=== PATIENT | female | born 1995 | race Hispanic/Latino ===

== ENCOUNTER → 2025-01-12 | Outpatient (CLI) | payer OTHER | LOC: M RAD 11:31 | PROVIDERS: ATTEND Nurse Practitioner Family | DX: O35.EXX0 Maternal care for other (suspected) fetal abnormality and damage, fetal genitourinary anomalies, not applicable or unspecified (principal) ==

== ENCOUNTER → 2025-01-21 | Outpatient (REF) | payer OTHER | LOC: M SFHCWAGY 13:29 | PROVIDERS: ATTEND Nurse Practitioner Family | DX: Z34.93 Encounter for supervision of normal pregnancy, unspecified, third trimester (principal); Z3A.36 36 weeks gestation of pregnancy ==

== ENCOUNTER 2025-01-27 10:28 | Inpatient (IN) | payer OTHER ==
[2025-01-27] VITALS (11 sets, daily range): BP systolic 99–118; BP diastolic 56–72; TEMP 97.4; O2SAT 97–99
[~2025-01-27] VITALS: Ht 154.9 cm; Wt 80.9 kg
[2025-01-27] MEDS ORDERED: PRENTAB9 PO (10:43)
[2025-01-27] MEDS ORDERED: TUMS500C PO (11:02)
[2025-01-27 12:11] LABS: PLATELET COUNT, AUTOMATED 340 10^3/uL (150-450)
[2025-01-27] MEDS ORDERED: HOME MED LIST COMPLETE! XX SCH (12:25)
[2025-01-27] MEDS ORDERED: TRANEXAMIC ACID INJection 1,000 MG in NS 100 ML IV PRN (12:50)
[2025-01-27] MEDS ORDERED: OXYTOCIN DRIP 30 UNITS in IV 1 EA IV PRN (12:50)
[2025-01-27] MEDS ORDERED: CARBOPROST TROMETHAMINE 250 MCG/ML AMP IM PRN (12:50)
[2025-01-27] MEDS ORDERED: OXYTOCIN INJ 10UNITS/ML 1ML VIAL IM PRN (12:50)
[2025-01-27] MEDS ORDERED: METHYLERGONOVINE MALEATE 0.2 MG/ML 1 ML VIAL IM PRN (12:50)
[2025-01-27] MEDS: LR 1,000 ML IV SCH (14:16)
[2025-01-27 15:26] LABS: HIV 1&2 SCREEN NEGATIVE (NEGATIVE)
[2025-01-27 15:34] LABS: HEPATITIS C VIRUS ABY INDEX < 0.02 INDEX (<0.8)
[2025-01-27] MEDS: LACTATED RINGER'S 1000 ML IV STA (18:15)
[2025-01-27] MEDS ORDERED: OXYTOCIN 30UNITS IN 0.9% NaCl 500ML IV BAG As Ordered ONE (19:18)
[2025-01-27] MEDS ORDERED: MORPHINE PRES-FREE INJ 10 MG/10 ML VIAL As Ordered ONE (19:18)
[2025-01-27] MEDS ORDERED: dexAMETHasone 4 MG/ML 1 ML VIAL As Ordered ONE (19:19)
[2025-01-27] MEDS ORDERED: ONDANSETRON 4MG 2ML VIAL As Ordered ONE (19:19)
[2025-01-27] MEDS: ceFAZolin SODIUM 2 GM in DEXTROSE 5% (D5W) ADV/MINI-BAG 50 ML IV ONE (19:27)
[2025-01-27] MEDS: BICITRA 30 ML SOLN UDC PO ONE (19:28)
[2025-01-27] MEDS: ACETAMINOPHEN 650 MG SUPP PR ONE (19:28)
[2025-01-27] MEDS ORDERED: ACETAMINOPHEN 1000MG/100ML IV BAG As Ordered ONE (19:42)
[2025-01-27] MEDS ORDERED: PHENYLephrine 500MCG 5ML (100MCG/ML) SYRINGE As Ordered ONE (20:02)
[2025-01-27] MEDS ORDERED: OXYTOCIN INJ 10UNITS/ML 1ML VIAL As Ordered ONE (20:05)
[2025-01-27] MEDS ORDERED: KETOROLAC 30 MG/ML 1 ML VIAL As Ordered ONE (20:30)
[2025-01-27 20:40] LABS: CORD GAS ABE V -4.1; CORD GAS HCO3 V 20.4 MMOL/L; CORD GAS O2 SAT V 62.7 %; CORD GAS PCO2 V 36.1 mmHg; CORD GAS PH V 7.37 UNITS; CORD GAS PO2 V 27.3 mmHg; CORD GAS SBC V 20.2 MMOL/L; CORD GAS TCO2 V 21.5 MMOL/L
[2025-01-27 20:43] LABS: CORD GAS ABE A -2.1; CORD GAS HCO3 A 25.5 MMOL/L; CORD GAS O2 SAT A 20.1 %; CORD GAS PCO2 A 54.9 mmHg; CORD GAS PH A 7.285 UNITS; CORD GAS PO2 A 13.3 mmHg; CORD GAS SBC A 20.8 MMOL/L; CORD GAS TCO2 A 27.2 MMOL/L
[2025-01-27] MEDS: OXYTOCIN DRIP 30 UNITS in IV 1 EA IV PRN (21:00)
[2025-01-27] MEDS ORDERED: ONDANSETRON 4MG 2ML VIAL IV PRN (21:10)
[2025-01-27] MEDS ORDERED: **NOTE PATIENT COMMENT** MISC XX SCH (21:10)
[2025-01-27] MEDS ORDERED: NALOXONE INJ 0.4 MG/1 ML VIAL IV PRN ×2 (21:10)
[2025-01-27] MEDS ORDERED: diphenhydrAMINE 50 MG/ML VIAL IV PRN (21:10)
[2025-01-27] MEDS: SLF 3 ML SYR IV SCH (23:29)
[2025-01-28] VITALS (8 sets, daily range): BP systolic 97–118; BP diastolic 54–61; O2SAT 97–100
[2025-01-28] MEDS ORDERED: SIMETHICONE 80MG CHEW TAB PO PRN (09:20)
[2025-01-28] MEDS ORDERED: PERCOCET 5MG/325MG TAB PO PRN (09:20)
[2025-01-28] MEDS ORDERED: RHOGAM 300MCG (1500IU) INJ IM SCH (09:20)
[2025-01-28] MEDS: LR 1,000 ML IV SCH (09:20)
[2025-01-28] MEDS ORDERED: MORPHINE 4 MG/ML 1 ML VIAL IV PRN (09:20)
[2025-01-28] MEDS ORDERED: ANUSOL HC CREAM 30 GM TOP PRN (09:20)
[2025-01-28] MEDS ORDERED: CALCIUM CARBONATE 500 MG CHEW U/D PO PRN (09:20)
[2025-01-28] MEDS ORDERED: METHYLERGONOVINE MALEATE 0.2 MG/ML 1 ML VIAL IM PRN (09:20)
[2025-01-28] MEDS ORDERED: ONDANSETRON 4MG 2ML VIAL IV PRN (09:20)
[2025-01-28] MEDS: PERCOCET 5MG/325MG TAB PO PRN (10:28)
[2025-01-28] MEDS: KETOROLAC 30 MG/ML 1 ML VIAL IV SCH (10:29)
[2025-01-28] MEDS: DOCUSATE SODIUM 100 MG CAPSULE PO SCH (21:12)
[2025-01-28] MEDS: ACETAMINOPHEN 500 MG TAB PO PRN (21:12)
[2025-01-29 02:00] VITALS: BP 112/56; O2SAT 100
[2025-01-29 05:37] VITALS: BP 104/61; O2SAT 96
[2025-01-29] MEDS: IBUPROFEN 800 MG TAB PO SCH (06:22)
[2025-01-29 07:45] LABS: PLATELET COUNT, AUTOMATED 252 10^3/uL (150-450)
[2025-01-29] MEDS: PRENATAL VITAMINS CHEWABLE TABLET PO SCH (09:40)
[2025-01-29 10:00] VITALS: BP 105/63; O2SAT 95
[2025-01-29] MEDS: ACETAMINOPHEN 500 MG TAB PO PRN (14:55)
[2025-01-29 17:56] VITALS: BP 110/59; O2SAT 97
[2025-01-29 22:03] VITALS: BP 116/58; O2SAT 97
[2025-01-30 05:41] VITALS: BP 109/58; O2SAT 98
[2025-01-30] MEDS ORDERED: MEASLES,MUMPS,RUBELLA VACCINE INJ (MMR-II) SC.IMMUN ONE (09:00)
[2025-01-30] MEDS ORDERED: IBUP80TA PO (09:35)
[2025-01-30] MEDS ORDERED: ACET-683 PO (09:35)
== END 2025-01-30 12:00 | disposition home or self-care (01) | DRG 772 ==
LOC: M LDI 10:28 → M OBS 23:10
PROVIDERS: ADMIT Advanced Practice Midwife; ATTEND Obstetrics & Gynecology
PROC: 10D00Z1 Extraction of Products of Conception, Low, Open Approach (ICD-10-PCS; principal; 2025-01-27 19:46)
DX: O32.1XX0 Maternal care for breech presentation, not applicable or unspecified (principal); O41.03X0 Oligohydramnios, third trimester, not applicable or unspecified; Z3A.37 37 weeks gestation of pregnancy; Z37.0 Single live birth

== ENCOUNTER → 2025-01-27 | Outpatient (CLI) | payer OTHER ==
[~2025-01-27] MED LIST: ACET-683 PO; IBUP80TA PO; PRENTAB9 PO; TUMS500C PO
== END ==
LOC: M RAD 08:46
PROVIDERS: ATTEND Nurse Practitioner Family
DX: Z34.80 Encounter for supervision of other normal pregnancy, unspecified trimester (principal); Z3A.36 36 weeks gestation of pregnancy